=== PATIENT | female | born 1950 | race Caucasian/White ===

== ENCOUNTER 2017-11-01 18:00 | Emergency (ER) | payer OTHER ==
--- NOTE | 2017-11-01 18:46 | EDPHY ---
H & P Time Seen by Provider: 11/01/17 18:29 HPI/ROS: Chief complaint. Thumb injury HPI. Patient is 67-year-old female who just but a new cooler. She was using it in her car. The lid was higher than the ceiling of the car and would not open all the way. The lid slammed down on to her right thumb. No other injuries. Patient is right handed. Injury occurred just prior to arrival. No previous injury to her right thumb ROS Constitutional. no fever/chills, no weakness Eyes. no problems with vision ENT. no sore throat, no nasal drainage Cardiovascular. no chest pain Respiratory. no shortness of breath, no cough Abdominal. no abdominal pain, no nausea/vomiting, no diarrhea . no problems urinating MS. Right thumb pain Skin. no rash Lymph. no swollen glands Neuro. no headache, no dizziness, no difficulty walking or with speech Past Medical/Surgical History: Pneumonia Social History: , nonsmoker, no alcohol Smoking Status: Never smoked Physical Exam: General Appearance: Alert pleasant well-developed female mild distress vital signs are stable Eyes: Pupils equal and round no pallor or injection. ENT, Mouth: Mucous membranes are moist. Respiratory: There are no retractions, lungs are clear to auscultation. Cardiovascular: Regular rate and rhythm. Gastrointestinal: Abdomen is soft and nontender, no masses, bowel sounds normal. Neurological: Awake and alert, sensory and motor exams grossly normal. Skin: Warm and dry, no rashes. Musculoskeletal: Neck is supple nontender. Extremities tenderness to the right thumb with mild swelling between the MCP and IP joints. No obvious deformity. No laceration. No subungual hematoma Psychiatric: Patient is oriented X 3, there is no agitation. Constitutional: Initial Vital Signs Temperature (C) 36.6 C 11/01/17 18:09 Heart Rate 85 11/01/17 18:09 Respiratory Rate 20 11/01/17 18:09 Blood Pressure 156/88 H 11/01/17 18:09 O2 Sat (%) 96 11/01/17 18:09 O2 Delivery Mode Room Air Allergies/Adverse Reactions: No Known Allergies Allergy (Unverified 11/10/13 15:49) Home Medications: Medication Instructions Recorded NK [No Known Home Meds] 11/01/17 Medical Decision Making - Diagnostics Imaging Results: Imaging Impressions Finger X-Ray 11/01/17 18:10 Impression: Nothing acute identified. X-ray right thumb interpreted by me is negative for fracture ED Course/Re-evaluation: Re-evaluation patient is stable. She and I discussed imaging studies, treatment plan including criteria for return importance of follow-up and further evaluation. She expresses understanding and agreement. Patient declines a splint Differential Diagnosis: I considered fracture, dislocation, contusion Departure - Departure Disposition: Home, Routine, Self-Care Clinical Impression: Contusion of right thumb Qualifiers: Encounter type: initial encounter Condition: Good Instructions: Contusion in Adults (ED) Additional Instructions: Ice off and on next 24 hr. Ibuprofen 600 mg every 6 hr for discomfort. Activity as tolerated. Recheck in 3-4 days if not improved Referrals: BRITTANIE VAZQUEZ [Primary Care Provider] - 3-4 days, if not improved
[2017-11-01 18:58] VITALS: BP 136/78
== END 2017-11-01 18:48 | disposition home or self-care (01) ==
LOC: CED 18:00
DX: S60.011A Contusion of right thumb without damage to nail, initial encounter (principal); W23.0XXA Caught, crushed, jammed, or pinched between moving objects, initial encounter
CPT/HCPCS: 73140-PO

== ENCOUNTER → 2018-03-28 | Outpatient (CLI) | payer OTHER | LOC: CIMAGING 10:22 | PROVIDERS: ATTEND Family Medicine | DX: Z12.31 Encounter for screening mammogram for malignant neoplasm of breast (principal) ==

== ENCOUNTER → 2018-04-07 | Outpatient (CLI) | payer OTHER | LOC: CIMAGING 13:20 | PROVIDERS: ATTEND Family Medicine | DX: N60.02 Solitary cyst of left breast (principal) | CPT/HCPCS: 76641-PO ==

== ENCOUNTER → 2018-09-25 | Outpatient (CLI) | payer OTHER | LOC: CIMAGING 10:43 | PROVIDERS: ATTEND Physician Assistant | DX: M16.0 Bilateral primary osteoarthritis of hip (principal) | CPT/HCPCS: 73700-PO ==

== ENCOUNTER → 2018-09-28 | Outpatient (CLI) | payer OTHER | LOC: BMCIMAGING 16:10 | PROVIDERS: ATTEND Internal Medicine Rheumatology | DX: M18.11 Unilateral primary osteoarthritis of first carpometacarpal joint, right hand (principal); M19.071 Primary osteoarthritis, right ankle and foot ==

== ENCOUNTER 2018-11-13 06:05 | Inpatient (IN) | payer OTHER ==
[~2018-11-13 06:05] MED LIST: ROPIVACAINE 0.2% 80 MG, EPINEPHrine 0.2 MG, KETOROLAC TROMETHAMINE 30 MG, morphINE 10 M... IU ONE; TRANEXAMIC ACID 1,000 MG in NS 100 ML IV ONE
--- NOTE | 2018-11-13 06:37 | PDIAF ---
- Diagnosis Diagnosis: right hip djd Code Status: Full Code - Medication Management Discharge Medications: electronically signed and located in the Home Medication List. - Orders Services needed: Home Care, Physical Therapy Home Care Face to Face: I certify that this patient was under my care and that I had the required [id number] encounter meeting the encounter requirements on the discharge day. My findings support the fact that the patient is homebound as defined in Home Care Face to Face Continued: CMS Chapter 7 Medicare Benefits Manual 30.1.1 , The condition of the patient is such that there exists a normal inability to leave home and consequently, leaving home would require a considerable and taxing effort. Diet Recommendation: no restrictions on diet Diet Texture: Regular Texture Diet Additional Instructions: TOTAL JOINT ARTHROPLASTY DISCHARGE INSTRUCTIONS 1. Your surgeon follows the [facility] protocol for reducing your risk of DVT (blood clots) following surgery. Medication will be ordered to prevent blood clots. A sudden increase in calf pain and/or swelling could indicate a blood clot in your leg. If this occurs, please call your surgeon or his/her virtual office assistant. An ultrasound of the leg may be necessary to diagnose a blood clot. If you have conditions that make you a higher risk for blood clots, your surgeon may use more aggressive ways to prevent them. Notify your surgeon if you think you are a high risk for blood clots. 2. Wear your white surgical stockings (JADE hose) for 2 weeks. This decreases your swelling and may help prevent blood clots. It is ok to remove JADE hose at night time to give your legs a break. 3. Swelling and bruising in the surgical leg is common. If you feel that it is excessive, please notify your surgeon. 4. Elevate your surgical leg with the ankle above the hip several times every day. Please keep the leg straight when you elevate by putting pillows under your foot. Do not put pillows under your knee. This will make being able to fully straighten more difficult. This is uncomfortable, but try to do it as much as possible. 5. For total knee replacements use compressive wrap on your knee for 3-5 days after surgery, then you can discontinue it. 6. Use a walker or crutches for 1-2 weeks. Progress your weight-bearing as tolerated. You may start to use a cane when you feel stable and safe. 7. You will receive physical therapy instructions in the hospital. Continue those exercises at home. There are additional exercises in the total joint booklet you were given before surgery. Outpatient physical therapy will begin 7- 10 days after surgery. Please schedule this in advance. 8. Use ice on your knee at least 3-5 times every day for 30 minutes. This helps reduce pain and swelling. Also use it at night before falling asleep. 9. Leave your surgical dressing in place for 2 weeks. Your dressing is water resistant, but not waterproof. Cover it with Saran Wrap or Jzosd-h-Yvhu before showering. You may shower as soon as you feel safe entering a shower. If you notice bleeding from your incision 2 or 3 days after surgery, please notify your surgeon. 10. Due to narcotics, decreased activity and altered diet, most patients experience constipation after surgery. Use ekdb-koe-bougorq stool softeners while you are on narcotics. 11. You may drive a car when you are comfortable bearing weight, have good muscular control of your leg and are off narcotics. This usually occurs 2-4 weeks after surgery, depending on which leg was operated on. 12. If there are questions not addressed here, please refer the [facility] book given for more information. If you still have questions, please contact your surgeon s office. 13. If you have a life-threatening emergency, please call 911 and go to the emergency room immediately. For non-life threatening emergencies, please call your physicians office for advice before going to the emergency room. - Follow Up Care Current Providers and Referrals: BRITTANIE VAZQUEZ [Primary Care Provider] - Leodan Flowers MD [Medical Doctor] -
--- NOTE | 2018-11-13 06:37 | PDHPUP ---
History & Physical Update H&P update statement: This history and physical update is based on an assessment of the patient which was completed after admission or registration (within 24 hours), but prior to the surgery/procedure. H&P update: no change in patient's condition since H&P completed
[2018-11-13] MEDS ORDERED: ceFAZolin 1 GM/5 ML SYR ONE (06:38)
[2018-11-13] MEDS ORDERED: ceFAZolin 2 GM/DEXTROSE 100 ML IV ONE (07:02)
[2018-11-13] MEDS ORDERED: FAMOTIDINE 20 MG TAB PO ONE (07:02)
[2018-11-13] MEDS ORDERED: ACETAMINOPHEN 325 MG TAB PO ONE (07:02)
[2018-11-13] MEDS ORDERED: LR 1,000 ML IV ONE (07:03)
[2018-11-13] MEDS ORDERED: fentaNYL 100 MCG/2 ML INJ IVP PRN (07:39)
[2018-11-13] MEDS ORDERED: oxyCODONE IR 5 MG TAB PO PRN (07:39)
[2018-11-13] MEDS ORDERED: HYDROmorphONE/DILAUDID 1 MG/ML INJ IVP PRN (07:39)
[2018-11-13] MEDS ORDERED: ONDANSETRON 4 MG/2 ML VIAL IVP PRN (07:39)
[2018-11-13] MEDS ORDERED: NALOXONE HCL 0.4 MG/ML INJ IVP PRN (07:39)
[2018-11-13] MEDS ORDERED: PROMETHAZINE HCL 25 MG/ML INJ IVP PRN ×2 (07:39→09:28)
[2018-11-13] MEDS ORDERED: MIDAZOLAM 2 MG/2 ML VIAL IVP ONE (07:39)
[2018-11-13] MEDS ORDERED: ALBUTEROL 3 ML DEYVIAL IH PRN (07:39)
--- NOTE | 2018-11-13 07:39 | PDANEPAE ---
ANE History of Present Illness R Hip ANE Past Medical History - Cardiovascular History Hx Hypertension: No Hx Arrhythmias: No Hx Chest Pain: No Hx Coronary Artery / Peripheral Vascular Disease: No Hx CHF / Valvular Disease: No Hx Palpitations: No - Pulmonary History Hx COPD: No Hx Asthma/Reactive Airway Disease: Yes Hx Recent Upper Respiratory Infection: No Hx Oxygen in Use at Home: No Hx Sleep Apnea: No Sleep Apnea Screening Result - Last Documented: Negative Pulmonary History Comment: ASTHMA - INHALERS. 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 WRIST PROCEDURE. CYSTOSCOPY ANE Review of Systems Review of Systems: - Exercise capacity METS (RN): 5 METS ANE Patient History - Allergies Allergies/Adverse Reactions: No Known Allergies Allergy (Unverified 11/10/13 15:49) - Home Medications Home Medications: Escitalopram Oxalate [Lexapro] 20 mg PO DAILY 10/18/18 [Last Taken Unknown] Advil 10/23/18 [Last Taken Unknown] Breo Ellipta 100-25 Mcg INH 10/23/18 [Last Taken Unknown] Symbicort 80-4.5 Mcg Inhaler 10/23/18 [Last Taken Unknown] - NPO status NPO Since - Liquids (Date): 11/13/18 NPO Since - Liquids (Time): 05:15 NPO Since - Solids (Date): 11/12/18 NPO Since - Solids (Time): 07:30 - Smoking Hx Smoking Status: Never smoked ANE Labs/Vital Signs - Vital Signs Blood Pressure: 131/86 Heart Rate: 73 Respiratory Rate: 12 O2 Sat (%): 94 Height: 160.02 cm Weight: 74.843 kg ANE Physical Exam - Airway Neck exam: FROM Mallampati Score: Class 2 Mouth exam: normal dental/mouth exam - Pulmonary Pulmonary: clear to auscultation - Cardiovascular Cardiovascular: regular rate and rhythym - ASA Status ASA Status: II ANE Anesthesia Plan Anesthesia Plan: spinal
[2018-11-13] MEDS ORDERED: PROPOFOL/EMULSION 500 MG/50 ML BOTTLE IV ONE (07:44)
[2018-11-13] MEDS ORDERED: BUPIVACAINE/DEXTROSE 7.5MG/ML 2 ML SPINAL AMP SP ONE (07:48)
[2018-11-13] MEDS ORDERED: ONDANSETRON 4 MG/2 ML VIAL ONE (08:27)
[2018-11-13] MEDS ORDERED: DEXAMETHASONE 4 MG/ML VIAL ONE (08:27)
[2018-11-13] MEDS ORDERED: fentaNYL 100 MCG/2 ML INJ ONE (08:42)
[2018-11-13] MEDS ORDERED: PHENYLEPHRINE HCL 100 MCG/ML SYR ONE (08:51)
[2018-11-13] MEDS ORDERED: PROPOFOL 200 MG/20 ML VIAL ONE (09:24)
[2018-11-13] MEDS ORDERED: CYCLOBENZAPRINE 10 MG TAB PO PRN (09:28)
[2018-11-13] MEDS ORDERED: diphenhydrAMINE 25 MG CAP PO PRN (09:28)
[2018-11-13] MEDS ORDERED: PROMETHAZINE HCL 25 MG SUPPR PR PRN (09:28)
[2018-11-13] MEDS ORDERED: BISACODYL 10 MG SUPP PR PRN (09:28)
[2018-11-13] MEDS ORDERED: TEMAZEPAM 15 MG CAP PO PRN (09:28)
[2018-11-13] MEDS ORDERED: MAGNESIUM HYDROXIDE 30 ML UDCUP PO PRN (09:28)
[2018-11-13] MEDS ORDERED: LACTULOSE 20 GM/30 ML UDCUP PO PRN (09:28)
[2018-11-13] MEDS ORDERED: DIPHENOXYLATE/ATROPINE LOMOTIL 1 TAB PO PRN (09:28)
[2018-11-13] MEDS ORDERED: POLYETHYLENE GLYCOL 3350 17 GM PKT PO PRN (09:28)
--- NOTE | 2018-11-13 09:28 | POSTOPPROG ---
Post Op Note Date of Operation: 11/13/18 Surgeon: Leodan Flowers Community Planner: Fina Anesthesiologist: Edwin Anesthesia: Spinal Pre-op Diagnosis: Right hip OA Post-op Diagnosis: Right hip OA Indication: Right hip OA Procedure: Right SUZAN, anterior approach, VIKY assist Findings: Right hip OA Inf/Abcess present in the surg proc area at time of surgery?: No Depth: Deep Incisional (Fascial) EBL: 100-500 Drains: Hemovac
[2018-11-13] MEDS ORDERED: LR 1,000 ML IV SCH (09:30)
--- NOTE | 2018-11-13 09:57 | POSTANESTH ---
Post Anesthetic Evaluation Cardiovascular Status: Normal, Stable Respiratory Status: Normal, Stable Level of Consciousness/Mental Status: Can Participate in Eval, Alert and Oriented Pain Control: Adequate, Prn Tx Ordered Nausea/Vomiting Control: Adequate, Prn Tx Ordered Complications Possibly Related to Anesthesia: None Noted
[2018-11-13] MEDS: oxyCODONE IR 5 MG TAB PO PRN ×2 (12:39→21:29)
--- NOTE | 2018-11-13 13:16 | PDMN ---
Medical Necessity [place] [facility] [place]: R SUZAN, anterior approach, VIKY assist. AUTH#[id number] FOR CPT 34185 INPT
--- NOTE | 2018-11-13 15:01 | SOAPPROG ---
SOAP Progress Note Assessment/Plan: Assessment: s/p right SUZAN, anterior approach, Donta assist - procedure earlier this morning Plan: Begin discharge planning - going home, will have family members' support Continue PT - follow anterior SUZAN precautions Continue pain medication Continue VTE ppx - aspirin 325 once daily, SCDs, JADE hose Remove drain tomorrow 11/13/18 14:56 11/13/18 15:02 Subjective: Patient states she is doing well, pain is minimal at this time. She was able to work with PT this afternoon; patient was able to walk around the floor without significant difficulty. She is hoping to go home tomorrow and reports having family to help her. She denies shortness of breath, chest pain, fever, chills, nausea, calf pain. Objective: Vital Signs Temp Pulse Resp BP Pulse Ox 36.5 C 72 14 99/66 L 95 11/13/18 14:39 11/13/18 14:39 11/13/18 14:39 11/13/18 14:39 11/13/18 14:39 11/12/18 11/13/18 11/14/18 05:59 05:59 05:59 Intake Total 550 Output Total 1340 Balance -790 Patient is resting comfortably in bed, no acute distress. RLE: Surgical wound dressings are clean, dry and intact. Drain is in place. Lower leg compartments are soft and nontender. She can actively DF and PF her right foot and great toe. Grossly NVI distally. ICD10 Worksheet Patient Problems: Problems Problem Status Onset Unilateral primary osteoarthritis, right hip Acute
--- NOTE | 2018-11-13 15:24 | ASMTCMCOM ---
CM Note CM Note Notes: Pt is s/p R SUZAN. PT has cleared. Spoke with pt and her partner and they don't feel the need for home care. Anticipate pt will d/c home independent when medically cleared. CM will continue to follow for any change in d/c needs. D/C plan: anticipate home independent Date Signed: 11/13/2018 03:23 PM Electronically Signed By:THERESE Rutherford
[2018-11-13] MEDS: ceFAZolin 2 GM/DEXTROSE 100 ML IV SCH (16:46)
[2018-11-13] MEDS: ACETAMINOPHEN 325 MG TAB PO SCH ×2 (16:46→21:28)
[2018-11-13] MEDS: TRANEXAMIC ACID 650 MG TAB PO SCH (16:46)
[2018-11-13] MEDS: FAMOTIDINE 20 MG TAB PO SCH (21:28)
[2018-11-13] MEDS: SENNOSIDES/DOCUSATE SODIUM TAB PO SCH (21:29)
[2018-11-13] MEDS: ASPIRIN 325 MG TAB PO SCH (22:06)
[2018-11-14] MEDS: TRANEXAMIC ACID 650 MG TAB PO SCH ×2 (00:33→09:27)
[2018-11-14] MEDS: ceFAZolin 2 GM/DEXTROSE 100 ML IV SCH (00:33)
[2018-11-14] MEDS: ACETAMINOPHEN 325 MG TAB PO SCH ×2 (03:37→09:28)
--- NOTE | 2018-11-14 07:16 | PDIAF ---
- Diagnosis Diagnosis: right hip djd Code Status: Full Code - Medication Management Discharge Medications: electronically signed and located in the Home Medication List. - Orders Services needed: Home Care, Physical Therapy Home Care Face to Face: I certify that this patient was under my care and that I had the required igrj-uy-mpou encounter meeting the encounter requirements on the discharge day. My findings support the fact that the patient is homebound as defined in Home Care Face to Face Continued: CMS Chapter 7 Medicare Benefits Manual 30.1.1 , The condition of the patient is such that there exists a normal inability to leave home and consequently, leaving home would require a considerable and taxing effort. Diet Recommendation: no restrictions on diet Diet Texture: Regular Texture Diet Additional Instructions: TOTAL JOINT ARTHROPLASTY DISCHARGE INSTRUCTIONS 1. Your surgeon follows the [facility] protocol for reducing your risk of DVT (blood clots) following surgery. Medication will be ordered to prevent blood clots. A sudden increase in calf pain and/or swelling could indicate a blood clot in your leg. If this occurs, please call your surgeon or his/her cleaner assistant. An ultrasound of the leg may be necessary to diagnose a blood clot. If you have conditions that make you a higher risk for blood clots, your surgeon may use more aggressive ways to prevent them. Notify your surgeon if you think you are a high risk for blood clots. 2. Wear your white surgical stockings (JADE hose) for 2 weeks. This decreases your swelling and may help prevent blood clots. It is ok to remove JADE hose at night time to give your legs a break. 3. Swelling and bruising in the surgical leg is common. If you feel that it is excessive, please notify your surgeon. 4. Elevate your surgical leg with the ankle above the hip several times every day. Please keep the leg straight when you elevate by putting pillows under your foot. Do not put pillows under your knee. This will make being able to fully straighten more difficult. This is uncomfortable, but try to do it as much as possible. 5. For total knee replacements use compressive wrap on your knee for 3-5 days after surgery, then you can discontinue it. 6. Use a walker or crutches for 1-2 weeks. Progress your weight-bearing as tolerated. You may start to use a cane when you feel stable and safe. 7. You will receive physical therapy instructions in the hospital. Continue those exercises at home. There are additional exercises in the total joint booklet you were given before surgery. Outpatient physical therapy will begin 7- 10 days after surgery. Please schedule this in advance. 8. Use ice on your knee at least 3-5 times every day for 30 minutes. This helps reduce pain and swelling. Also use it at night before falling asleep. 9. Leave your surgical dressing in place for 2 weeks. Your dressing is water resistant, but not waterproof. Cover it with Saran Wrap or Hmqhu-l-Fifa before showering. You may shower as soon as you feel safe entering a shower. If you notice bleeding from your incision 2 or 3 days after surgery, please notify your surgeon. 10. Due to narcotics, decreased activity and altered diet, most patients experience constipation after surgery. Use wivu-epd-awrvpmg stool softeners while you are on narcotics. 11. You may drive a car when you are comfortable bearing weight, have good muscular control of your leg and are off narcotics. This usually occurs 2-4 weeks after surgery, depending on which leg was operated on. 12. If there are questions not addressed here, please refer the [facility] book given for more information. If you still have questions, please contact your surgeon s office. 13. If you have a life-threatening emergency, please call 911 and go to the emergency room immediately. For non-life threatening emergencies, please call your physicians office for advice before going to the emergency room. - Follow Up Care Current Providers and Referrals: BRITTANIE VAZQUEZ [Primary Care Provider] - Leodan Flowers MD [Medical Doctor] - follow up in 2 weeks
[2018-11-14 08:00] VITALS: BP 113/67
--- NOTE | 2018-11-14 08:39 | SOAPPROG ---
SOAP Progress Note Assessment/Plan: Assessment: s/p right SUZAN, anterior approach, Donta assist - POD 1 Anemia - expected initially post-op. Asymptomatic. Will continue to monitor. Plan: Discharge planning - patient is doing better than expected, she will be going home today. She will have family members' support. Home PT arranged. Continue PT - follow anterior SUZAN precautions. PT will need to clear her prior to d/c. Continue to WBAT and work on ROM as tolerated. Continue pain medication - tolerating oral medication. Continue VTE ppx - aspirin 325 once daily, SCDs, JADE hose. She will continue aspirin until 6 weeks post-op and JADE hose until 2 weeks post-op Follow up with Dr. Flowers's office for 2 week post-op appointment Subjective: Patient states she is doing well this morning, her pain is minimal at this time. She has been able to work with PT and was cleared to walk on her own. She is planning on going home today. She is tolerating oral diet and oral pain medication. She has been able to void spontaneously. Patient denies shortness of breath, chest pain, fever, chills, nausea, dizziness. Objective: Vital Signs Temp Pulse Resp BP Pulse Ox 36.8 C 63 16 113/67 92 11/14/18 07:59 11/14/18 07:59 11/14/18 07:59 11/14/18 07:59 11/14/18 07:59 Laboratory Results 11/14/18 04:24 11/13/18 11/14/18 11/15/18 05:59 05:59 05:59 Intake Total 1400 Output Total 1380 60 Balance 20 -60 Patient is resting comfortably in bed, no acute distress. RLE: Drain has been removed. New Mepilex dressings have been applied. They are clean, dry and intact. Lower leg compartments are soft and nontender. Negative Homans sign. She can actively DF and PF her foot and great toe against resistance. Grossly NVI distally. ICD10 Worksheet Patient Problems: Problems Problem Status Onset Unilateral primary osteoarthritis, right hip Acute
--- NOTE | 2018-11-14 08:54 | PDDCSUM ---
Discharge Summary Discharge Summary: ADMIT DIAGNOSIS: Right hip degenerative joint disease DISCHARGE DIAGNOSIS: Right hip degenerative joint disease DATE/NAME OF PROCEDURE: November 13, 2018 Right total hip arthroplasty, anterior approach, Donta assist HPI: The patient is a 68 year old female who has end-stage arthritis of right right hip. Clinical and radiographic features are consistent with this. Patient has failed attempts at conservative management, therefore, recommended operative right total hip replacement. HOSPITAL COURSE: Patient was admitted to the hospital floor after uncomplicated right total hip arthroplasty. Patient tolerated the procedure well and had no additional complications. At the time of discharge, patient is tolerating an oral diet, pain is well controlled on oral medications, and is voiding without difficulty. Dressing is clean, dry and intact. There is no swelling or calf tenderness. Patient has intact plantarflexion, dorsiflexion, EHL function. X- rays demonstrate anatomic positioning with no fracture or lucency. DISCHARGE ACTIVITY: Patient is WBAT and can perform ROM as tolerated. Patient was instructed to keep dressing clean, dry and intact. She is allowed to shower but will not take a bath/submerge the right hip. Patient is to seek attention for increasing redness, swelling, drainage or discharge. She will begin home PT for 1-2 weeks and then will begin outpatient PT. DISCHARGE MEDICATIONS: oxycodone 5 mg 1-2 every 3 hours prn pain, cyclobenzaprine 10 mg PO every 8 hours prn spasm, aspirin 325 mg PO daily. FOLLOW-UP: Follow up in 2 weeks. Again, patient is to seek attention for increasing redness, swelling, drainage or discharge.
[2018-11-14] MEDS ORDERED: Fluticasone/Vilanterol [Breo Ellipta 100-25 Mcg Inh] 1 EACH IH SCH (09:00)
[2018-11-14] MEDS ORDERED: ESCITALOPRAM OXALATE 10 MG TAB PO SCH (09:00)
[2018-11-14] MEDS: FAMOTIDINE 20 MG TAB PO SCH (09:27)
[2018-11-14] MEDS: SENNOSIDES/DOCUSATE SODIUM TAB PO SCH (09:27)
[2018-11-14] MEDS: ASPIRIN 325 MG TAB PO SCH (09:27)
--- NOTE | 2018-11-14 10:25 | ASMTLACE ---
LACE Length of stay for Answers: 2 days current admission Acuity / Level of Answers: Yes Care: Did the patient have an inpatient admission? Comorbidities - select Answers: Opioid dependence all that apply / Chronic pain # of Emergency department Answers: 0 visits in the last 6 months Score: 9 Date Signed: 11/14/2018 10:03 AM Electronically Signed By:THERESE Ayala
--- NOTE | 2018-11-14 10:25 | ASMTCMCOM ---
CM Note CM Note Notes: Pt requests HC which was pre-arranged by MD office with [facility]. Orders sent in [employer]. Date Signed: 11/14/2018 10:04 AM Electronically Signed By:THERESE Ayala
--- NOTE | 2018-11-14 10:56 | GOP ---
[f rep st] OPERATIVE REPORT DATE OF OPERATION: 11/13/2018 SURGEON: Leodan Flowers MD FINISHING POWDER PRESS OPERATOR: Dm Harden, surgical product sales consultant, who was medical necessity for the entirety of the case. PREOPERATIVE DIAGNOSIS: Right hip degenerative joint disease. POSTOPERATIVE DIAGNOSIS: Right hip degenerative joint disease. PROCEDURE PERFORMED: Right total hip arthroplasty, MAKOplasty. FINDINGS: SPECIMENS: To pathology, the femoral head. ESTIMATED BLOOD LOSS: 300 cc. INDICATIONS: The patient is a 68-year-old woman with end-stage arthritis to her right hip. Clinical and radiographic features are consistent with this. She has failed all attempts at conservative man agement. I have therefore recommended operative intervention. I have outlined the surgical procedur e, risks, benefits, and alternatives. She wished to proceed. Written consent was signed and placed in patient's chart. DESCRIPTION OF PROCEDURE: The patient was identified in the preanesthesia area. The right hip clear ly demarcated as operative site with an indelible marker. She was given 2 g of Ancef intravenously e n route to the operative suite. In the OR, spinal anesthetic was placed followed by additional sedat ion. She was positioned in the supine position. The pelvis and both lower extremities were sterilel y prepped and draped in usual fashion. Appropriate time-out procedure was carried out. Attention wa s first turned to the left hemipelvis. A 2 cm incision was made over the iliac crest. Three pins we re then placed and the pelvic reference array affixed. Attention was then turned to the right hip, a n anterior approach was made. Thick subcutaneous flaps were elevated followed by opening of the tens or fascia. The tensor was retracted laterally. The underlying vascular structures were cauterized a nd transected. The rectus elevated off the anterior capsule and retractors were placed in an extraca psular position. A T capsulotomy was made. The retractors were placed into an intracapsular positio n. An acetabular checkpoint was placed. Bony wedge was withdrawn from the femoral neck followed by removal of the head. The acetabular labrum and soft tissue were sharply excised. The bony landmarks were entered into the computer in standard fashion. Using the MAKOplasty software, reaming with a 4 6 mm reamer, an opening angle of 40 degrees and anteversion of 20 degrees was carried out. A 46 mm a cetabular shell was impacted, confirmed to be fully seated. A 0-degree X3 liner was then placed. At tention was turned to the femur. This was delivered to the use of soft tissue releases and extension of the table. The proximal canal was opened, serial broaching carried out to a size 4, and a 32 mm +0 mm head was placed. The hip was reduced. This restored appropriate length through the hip with p lanned lengthening of 5 mm versus the nonoperative hip. This was intentional given the plan to retur n for subsequent replacement of a shortened left hip, as well. Stability profile demonstrated welder production line combination al rotation to 90 degrees and full extension without subluxation. The trial stem was withdrawn. A s ize 4 stem was impacted, confirmed to be fully seated. A 32 mm +0 mm Biolox head was then placed. T he hip was then irrigated and reduced. Stability profile was as above. The 10-Bahamian PVC drain was placed. The tissues were irrigated copiously with pulsatile lavage, injected with a joint cocktail o f ropivacaine, Toradol, and epinephrine. The fascia closed using 0 Vicryl, subcutaneous tissue using 2-0 Monocryl, and the skin stapled. Sterile compressive dressing was applied to both sites. The pa tient was awakened and taken to the recovery room in good, stable condition. TOTAL TOURNIQUET TIME: None. COMPLICATIONS: None. IMPLANTS: Taye Trident II acetabular shell, size 46 mm; Trident X3 0-degree polyethylene insert 3 2 mm; Accolate II 127 degree neck angle hip stem size 4; and Biolox ceramic head, 32 mm +0 mm neck le ngth. DISPOSITION: To the recovery room and then the floor. She will follow standard total hip recovery. /[id number]/MODL
--- NOTE | 2018-11-14 11:13 | ASDISCHSUM ---
Discharge Information Plan Status:Home with Home Health Medically Cleared to Leave: Discharge Date:11/14/2018 09:46 AM CM D/C Disposition: ADT D/C Disposition:Home Health Service Projected Discharge Date:11/14/2018 11:00 AM Transportation at D/C: Discharge Delay Reason: Follow-Up Date:11/14/2018 11:00 AM Discharge Slot: Final Diagnosis: Placement Information Referral Type:*Home Health Care Services Referral ID:[id number] Provider Name:[facility] ([facility]) Address 1:[address] [address] Address 2: City:[place] Selection Factors: State:[place] Patient Contact Information Contact Name:DARIEN Relationship:Life Partner Address:[address] City:[facility] Phone: State/Zip Code:[place] [address] Email: Financial Information Financial Class:Medicare Advantage Plans Primary Plan Desc:[facility] [employer] Primary Plan Number:[id number] Secondary Plan Desc: Secondary Plan Number: Assessment Information LACE LACE Length of stay for Answers: 2 days current admission Acuity / Level of Answers: Yes Care: Did the patient have an inpatient admission? Comorbidities - select Answers: Opioid dependence all that apply / Chronic pain # of Emergency department Answers: 0 visits in the last 6 months Score: 9 Date Signed: 11/14/2018 10:03 AM Electronically Signed By:THERESE Ayala [facility] CM Progress Note CM Note CM Note Notes: Pt is s/p R SUZAN. PT has cleared. Spoke with pt and her partner and they don't feel the need for home care. Anticipate pt will d/c home independent when medically cleared. CM will continue to follow for any change in d/c needs. D/C plan: anticipate home independent Date Signed: 11/13/2018 03:23 PM Electronically Signed By:THERESE Rutherford [facility] CM Progress Note CM Note CM Note Notes: Pt requests HC which was pre-arranged by MD office with [facility]. Orders sent in [employer]. Date Signed: 11/14/2018 10:04 AM Electronically Signed By:THERESE Ayala Intervention Information
== END 2018-11-14 09:46 | disposition home health service (06) | DRG 470 ==
LOC: F3N 06:05
PROVIDERS: ADMIT Orthopaedic Surgery; ATTEND Orthopaedic Surgery
PROC: 0SR904Z Replacement of Right Hip Joint with Ceramic on Polyethylene Synthetic Substitute, Open Approach (ICD-10-PCS; principal; 2018-11-13 08:30)
PROC: 8E0Y0CZ Robotic Assisted Procedure of Lower Extremity, Open Approach (ICD-10-PCS; principal; 2018-11-13 08:30)
DX: M16.11 Unilateral primary osteoarthritis, right hip (principal); D64.9 Anemia, unspecified
CPT/HCPCS: 97110-GP; 97116-GP; 97161-GP; 97165-GO; 97535-GO; J0171; J0690; J1100; J1885; J2250; J2270; J2370; J2405; J2704; J2795; J3010